=== PATIENT | female | born 1995 | race Caucasian/White ===

== ENCOUNTER 2016-10-25 01:16 | Emergency (ER) | payer BC, OTHER ==
[~2016-10-25] VITALS: Ht 165.1 cm; Wt 113.4 kg
[2016-10-25 02:30] VITALS: BP 151/98
[2016-10-25] MEDS ORDERED: EPIPEN0.3 MG/0.1 IM (02:37)
[2016-10-25] MEDS ORDERED: PEPCID20 MG PO (02:37)
[2016-10-25] MEDS ORDERED: BENADRYL25 MG PO (02:37)
[2016-10-25] MEDS ORDERED: PREDNISONE 20 M20 MG PO (02:37)
== END 2016-10-25 02:54 | disposition home or self-care (01) ==
LOC: ER 01:16
DX: T78.40XA Allergy, unspecified, initial encounter (principal); X58.XXXA Exposure to other specified factors, initial encounter